=== PATIENT | male | born 1960 | race Caucasian/White ===

== ENCOUNTER 2019-12-10 09:00 | Day surgery (SDC) | payer MEDICAID ==
[2019-12-08 13:38] LABS: BASOPHILS % (AUTO) 0.4 % (0-1); EOSINOPHILS # (AUTO) 0.1 X10'3 (0-0.9); EOSINOPHILS % (AUTO) 1.4 % (0-6); HEMATOCRIT 45.6 % (42.0-52.0); HEMOGLOBIN 15.2 g/dl (14.0-17.9); MEAN CORPUSCULAR HEMOGLOBIN 30.7 PG (27.0-31.0); MEAN CORPUSCULAR HGB CONC 33.3 g/dL (33.0-36.5); MEAN CORPUSCULAR VOLUME 92.2 FL (78-98); MEAN PLATELET VOLUME 7.8 FL (7.4-10.4); MONOCYTES # (AUTO) 0.7 X10'3 (0-0.9); MONOCYTES % (AUTO) 8.6 % (2-12); NEUTROPHILS # (AUTO) 6.3 X10'3 (1.8-7.7); NEUTROPHILS % (AUTO) 77.6 % (42-75); PLATELET COUNT 194 X10'3 (140-440); RED BLOOD COUNT 4.95 X10'6 (4.70-6.10); RED CELL DISTRIBUTION WIDTH 13.9 % (11.5-14.5); WHITE BLOOD COUNT 8.2 X10'3 (4.5-11.0)
[2019-12-08 13:59] LABS: ALANINE AMINOTRANSFERASE 26 U/L (12-78); ALBUMIN 4.1 G/DL (3.4-5.0); ALBUMIN/GLOBULIN RATIO 1.1 (1.1-1.5); ALKALINE PHOSPHATASE 73 IU/L (46-116); ANION GAP 2 (8-16); ASPARTATE AMINO TRANSFERASE 17 U/L (10-37); BILIRUBIN,TOTAL 0.3 MG/DL (0.1-1.0); BLOOD UREA NITROGEN 15 MG/DL (7-18); BUN/CREATININE RATIO 14.3 (5.4-32.0); CALCIUM 8.6 MG/DL (8.5-10.1); CHLORIDE 107 MMOL/L (99-107); CREATININE 1.05 MG/DL (0.60-1.10); GLUCOSE 104 MG/DL (70-104); SODIUM 139 MMOL/L (135-145); TOTAL CARBON DIOXIDE 29.6 MMOL/L (24-32); TOTAL PROTEIN 7.7 G/DL (6.4-8.2); eGFR 72 ML/MIN
[2019-12-08 14:00] LABS: PARTIAL THROMBOPLASTIN TIME 54 SECONDS (22-32)
[2019-12-10] VITALS (12 sets, daily range): BP systolic 104–149; BP diastolic 52–83
[~2019-12-10] VITALS: Ht 193 cm; Wt 139.0 kg
[~2019-12-10 09:00] MED LIST: ASPI81TA30 PO; LORA10TA7 PO; METO100T7 PO; WARF5TAB PO
[2019-12-10] MEDS ORDERED: normal saline 1000ml 1,000 ML IV SCH ×2 (09:15→12:15)
[2019-12-10] MEDS ORDERED: diphenhydrAMINE 25mg capsule PO ONE (09:15)
[2019-12-10] MEDS ORDERED: nitroGLYCERIN 0.4mg SUBLingual tab SL PRN (09:15)
[2019-12-10] MEDS ORDERED: LORazepam 0.5 MG tablet PO ONE (09:20)
[2019-12-10] MEDS ORDERED: PHYTONADIONE 1 MG/0.5 ML SQ PRN (09:20)
[2019-12-10] MEDS ORDERED: phytonadione 10 MG/1 ML amp SQ PRN (09:50)
[2019-12-10] MEDS ORDERED: COU5T PO (09:54)
[2019-12-10] MEDS ORDERED: LORA10CA PO (09:54)
[2019-12-10] MEDS ORDERED: SILD100T PO (09:54)
[2019-12-10] MEDS ORDERED: LISI-600 PO (09:54)
[2019-12-10] MEDS ORDERED: KETOCONAZOLE TP (09:54)
[2019-12-10] MEDS ORDERED: ALLO100T PO (09:54)
[2019-12-10] MEDS ORDERED: ASPI-1264 PO (09:54)
[2019-12-10] MEDS ORDERED: Statin (09:55)
[2019-12-10] MEDS ORDERED: midazolam 2 mg/2 ml injection ONE ×2 (11:12→11:28)
[2019-12-10] MEDS ORDERED: LIDOcaine 1% (10mg/ml)w/preservative injection 20ml MDV ONE (11:13)
[2019-12-10] MEDS ORDERED: iohexol 350MG/ML 100ml bottle IV ONE (11:13)
[2019-12-10] MEDS ORDERED: iohexol 350 MG/ML 50ML vial IV ONE (11:13)
[2019-12-10] MEDS ORDERED: fentaNYL/PF 50MCG/1 ML 2ML syringe ONE (11:13)
[2019-12-10] MEDS ORDERED: HYDROcodone/acetaminophen 5mg/325mg tablet PO PRN (12:15)
[2019-12-10] MEDS ORDERED: ondansetron/PF 4mg/2ml inj IV PRN (12:15)
[2019-12-10] MEDS ORDERED: acetaminophen 325mg tablet PO PRN (12:20)
[2019-12-10] MEDS ORDERED: OXAZEpam 15mg capsule PO PRN (12:20)
[2019-12-10] MEDS ORDERED: proCHLORperazine 10 MG/2 ml inj IV PRN (12:20)
[2019-12-10] MEDS ORDERED: HYDROcodone/acetaminophen 10/325mg tab PO PRN (12:20)
== END 2019-12-10 17:55 | disposition home or self-care (01) ==
LOC: SSTAY O 09:00
PROVIDERS: ATTEND Internal Medicine Cardiovascular Disease
DX: R94.39 Abnormal result of other cardiovascular function study (principal); I25.10 Atherosclerotic heart disease of native coronary artery without angina pectoris; I42.9 Cardiomyopathy, unspecified; D68.2 Hereditary deficiency of other clotting factors; I10 Essential (primary) hypertension; E78.5 Hyperlipidemia, unspecified; M10.9 Gout, unspecified; M19.90 Unspecified osteoarthritis, unspecified site; Z79.01 Long term (current) use of anticoagulants; Z72.89 Other problems related to lifestyle; Z88.0 Allergy status to penicillin; Z87.891 Personal history of nicotine dependence; Z79.899 Other long term (current) drug therapy
CPT/HCPCS: 36415; 71046; 80053; 85025; 85610; 85730; 93005; 93458; 99152; 99153; C1769; J1644; J2001; J2250; J3010; J7030; Q0163; Q9967; A4620; A6258; C1760